=== PATIENT | female | born 1960 | race Caucasian/White ===

== ENCOUNTER 2022-12-25 20:06 | Emergency (ER) | payer MEDICARE, OTHER ==
[2022-12-25 20:17] VITALS: BP 111/82; PULSE 70; RESP 18; TEMP 97.8
[2022-12-25] MEDS ORDERED: TOPICAL SKIN ADHESIVE 1 EACH AMP TOPICAL ONE (20:23)
--- NOTE | 2022-12-25 22:04 | ED ---
Wound/Laceration HPI - General Chief Complaint: Wound/Laceration Stated Complaint: laceration-finger Time Seen by Provider: 12/25/22 20:19 Source: patient Mode of arrival: EMS Limitations: altered mental status - History of Present Illness Initial Comments: 62-year-old female presenting with chief complaint of laceration. Patient has a laceration to the right index finger from a broken dish at home. Tetanus is believed to be up-to-date. She has full range of motion of the finger. Bleeding is well-controlled. Patient states that she had one drink tonight. - Related Data Home Medications Medication Instructions Recorded Confirmed No Known Home Medications 01/07/15 01/07/15 Allergies Allergy/AdvReac Type Severity Reaction Status Date / Time No Known Allergies Allergy Verified 01/07/15 21:42 Review of Systems ROS Statement: Those systems with pertinent positive or pertinent negative responses have been documented in the HPI. ROS Other: All systems not noted in ROS Statement are negative. Past Medical History Past Medical History: Coronary Artery Disease (CAD), Cancer, COPD, Hyperlipidemia, Hypertension History of Any Multi-Drug Resistant Organisms: None Reported Past Surgical History: Breast Surgery, Orthopedic Surgery Additional Past Surgical History / Comment(s): 9 lumps removed Past Psychological History: Anxiety Past Alcohol Use History: Occasional Past Drug Use History: None Reported General Exam Limitations: altered mental status General appearance: alert, in no apparent distress Head exam: Present: atraumatic, normocephalic, normal inspection Eye exam: Present: normal appearance, EOMI Neck exam: Present: normal inspection, full ROM Respiratory exam: Absent: respiratory distress Neurological exam: Present: alert, oriented X3, CN II-XII intact Psychiatric exam: Present: normal affect, normal mood Skin exam: Present: other (Small less than 1 cm laceration to the right index finger.) Course Vital Signs 12/25/22 12/25/22 20:10 20:15 Temperature 97.8 F 97.8 F Pulse Rate 97 70 Respiratory 18 18 Rate Blood Pressure 111/82 111/82 O2 Sat by Pulse 96 95 Oximetry Procedures - Laceration Laceration #1 Consent Obtained: verbal consent Indication: laceration Site: hand Size (cm): 1 Description: linear (1) Depth: simple, single layer Pre-repair: wound explored Type of Sutures: other (exofin) Patient Tolerated Procedure: well Medical Decision Making - Medical Decision Making Was pt. sent in by a medical professional or institution (, [facility], [facility], urgent care, hospital, or [place] [facility]...) When possible be specific @ -No Did you speak to anyone other than the patient for history (EMS, parent, family, police, friend...)? What history was obtained from this source @ -Her boyfriend is present at bedside Did you review nursing and triage notes (agree or disagree)? Why? @ -I reviewed and agree with nursing and triage notes Were old charts reviewed (outside hosp., previous admission, EMS record, old EKG, old radiological studies, urgent care reports/EKG's, [place] [facility] records)? Report findings @ -No old charts were reviewed Differential Diagnosis (chest pain, altered mental status, abdominal pain women, abdominal pain men, vaginal bleeding, weakness, fever, dyspnea, syncope, headache, dizziness, GI bleed, back pain, seizure, CVA, palpatations, mental health, musculoskeletal)? @ -not applicable EKG interpreted by me (3pts min.). @ -As above X-rays interpreted by me (1pt min.). @ -None done CT interpreted by me (1pt min.). @ -None done U/S interpreted by me (1pt. min.). @ -None done What testing was considered but not performed or refused? (CT, X-rays, U/S, la bs)? Why? @ -None What meds were considered but not given or refused? Why? @ -None Did you discuss the management of the patient with other professionals (professionals i.e. , SHILPA, [facility]NER, lab, RT, psych nurse, medical social worker, plant supervisor, teacher, dog license officer supervisor, case repairer)? Give summary @ -No Was smoking cessation discussed for >3mins.? @ -No Was critical care preformed (if so, how long)? @ -No Were there social determinants of health that impacted care today? How? (Homelessness, low income, unemployed, alcoholism, drug addiction, transportation, low edu. Level, literacy, decrease access to med. care, long-term, rehab)? @ -No Was there de-escalation of care discussed even if they declined (Discuss DNR or withdrawal of care, Hospice)? DNR status @ -No What co-morbidities impacted this encounter? (DM, HTN, Smoking, COPD, CAD, Cancer, CVA, ARF, Chemo, Hep., AIDS, mental health diagnosis, sleep apnea, morbid obesity)? @ -None Was patient admitted / discharged? Hospital course, mention meds given and route, prescriptions, significant lab abnormalities, going to OR and other pertinent info. @ -62-year-old female presenting with chief complaint of laceration to the right index finger from a broken dish at home. Bleeding is well controlled. Laceration is repaired with skin adhesive. Patient tells me that she had one drink tonight. A breath alcohol level was ordered, patient is unable to fully comply with directions to get an accurate reading. Serum alcohol was ordered. While waiting for serum alcohol results patient and her boyfriend became agitated stating that they wanted to leave. I explained to them that we had to wait for the alcohol level as I was unsure if they would be able to safely be discharged at this time. Serum alcohol is 77. Patient is discharged. My attending is Dr. Mason Undiagnosed new problem with uncertain prognosis? @ -No Drug Therapy requiring intensive monitoring for toxicity (Heparin, Nitro, Insulin, Cardizem)? @ -No Were any procedures done? @ -Laceration repair Diagnosis/symptom? @ -Laceration Acute, or Chronic, or Acute on Chronic? @ -Acute Uncomplicated (without systemic symptoms) or Complicated (systemic symptoms)? @ -Uncomplicated Side effects of treatment? @ -No Exacerbation, Progression, or Severe Exacerbation? @ -No Poses a threat to life or bodily function? How? (Chest pain, [place], [place], pneumonia, PE, COPD, DKA, ARF, appy, cholecystitis, CVA, Diverticulitis, Homicidal, Suicidal, threat to staff... and all critical care pts) @ -No - Lab Data Lab Results 12/25/22 Range/Units 21:27 Serum Alcohol 77 mg/dL Disposition Clinical Impression: Laceration Disposition: HOME SELF-CARE Condition: Good Instructions (If sedation given, give patient instructions): Laceration (ED), Skin Adhesive Care (ED) Additional Instructions: Follow-up with PCP. Report back to ER with any new or worsening symptoms. Monitor for signs of infection, including but not limited to redness, swelling, pain, discharge, fever, chills. Keep the wound clean and dry and covered. Avoid fully submerging the wound. Clean with soap and water. Do not apply Neosporin or other ointment-based products as this will break down the skin adhesive. Is patient prescribed a controlled substance at d/c from ED?: No Referrals: Fabio Swann MD [Primary Care Provider] - 1-2 days Time of Disposition: 22:04
== END 2022-12-25 22:16 | disposition home or self-care (01) ==
LOC: EC 20:06
DX: S61.210A Laceration without foreign body of right index finger without damage to nail, initial encounter (principal); I10 Essential (primary) hypertension; I25.10 Atherosclerotic heart disease of native coronary artery without angina pectoris; J44.9 Chronic obstructive pulmonary disease, unspecified; X58.XXXA Exposure to other specified factors, initial encounter
CPT/HCPCS: 12001; 36415; 80320; 99284

== ENCOUNTER 2023-05-02 22:23 | Emergency (ER) | payer OTHER ==
[2023-05-02 22:56] VITALS: TEMP 98.2
[2023-05-02] MEDS ORDERED: HALOPERIDOL LACTATE 5 MG/ML 1 ML VIAL IM STA (23:35)
[2023-05-02] MEDS ORDERED: LORazepam 2 MG/ML INJ IM STA (23:35)
[2023-05-02] MEDS ORDERED: diphenhydrAMINE 50 MG/ML 1 ML VIAL IM STA (23:35)
--- NOTE | 2023-05-03 00:32 | ED ---
Psych HPI - General Source: patient, police Mode of arrival: ambulatory <Miriam Kaiser - Last Filed: 05/03/23 05:38> <Blaine Combs - Last Filed: 05/03/23 13:17> - General Chief Complaint: Psychiatric Symptoms Stated Complaint: Petition Time Seen by Provider: 05/02/23 23:31 - History of Present Illness Initial Comments: 62-year-old female brought in by PD for mental health evaluation. Patient has been consuming alcohol tonight. She was threatening suicide and self-harm which prompted police to bring her in. She is rambling aggressive and argumentative. Will not cooperate for obtaining history. Petitioned by PD (Miriam Kaiser) - Related Data Home Medications Medication Instructions Recorded Confirmed No Known Home Medications 01/07/15 01/07/15 Allergies Allergy/AdvReac Type Severity Reaction Status Date / Time No Known Allergies Allergy Verified 01/07/15 21:42 Review of Systems ROS Other: All systems not noted in ROS Statement are negative. <Miriam Kaiser - Last Filed: 05/03/23 05:38> ROS Other: All systems not noted in ROS Statement are negative. <Blaine Combs - Last Filed: 05/03/23 13:17> ROS Statement: Those systems with pertinent positive or pertinent negative responses have been documented in the HPI. Past Medical History Past Medical History: Coronary Artery Disease (CAD), Cancer, COPD, Hyperlipidemia, Hypertension History of Any Multi-Drug Resistant Organisms: None Reported Past Surgical History: Breast Surgery, Orthopedic Surgery Additional Past Surgical History / Comment(s): 9 lumps removed Past Psychological History: Anxiety Past Alcohol Use History: Occasional Past Drug Use History: None Reported <Miriam Kaiser - Last Filed: 05/03/23 05:38> General Exam General appearance: alert, other (Aggressive and argumentative) Head exam: Present: atraumatic, normocephalic Eye exam: Present: normal appearance Neck exam: Present: normal inspection Respiratory exam: Absent: respiratory distress Cardiovascular Exam: Present: regular rate Extremities exam: Present: normal inspection Neurological exam: Present: alert, altered Psychiatric exam: Present: agitated, suicidal ideation <Miriam Kaiser - Last Filed: 05/03/23 05:38> Course Vital Signs 05/02/23 05/03/23 05/03/23 22:36 07:55 11:00 Temperature 98.2 F Pulse Rate 87 80 80 Respiratory 16 20 16 Rate Blood Pressure 140/89 140/80 130/82 O2 Sat by Pulse 99 98 98 Oximetry Procedures - Restraint - Face to Face Restraint Occurrence 1 Patient's Immediate Situation: Endangers self safety, Endangers others' safety, Endangers staff safety, Violent behavior Patient's Reaction to the Intervention: Uncooperative, Hostile, Aggressive, Combative Patient's Medical & Behavioral Condition: Awake, Agitated, Suicidal thoughts Need to Continue or Terminate Restraint or Seclusion: Continue Face to Face Eval of Restraint Date: 05/03/23 Face to Face Eval of Restraint Time: 00:11 Restraint Occurrence 2 Patient's Immediate Situation: Other (see comment) Patient's Reaction to the Intervention: Appropriate Patient's Medical & Behavioral Condition: Sleeping Need to Continue or Terminate Restraint or Seclusion: Terminate Face to Face Eval of Restraint Date: 05/03/23 Face to Face Eval of Restraint Time: 03:10 <Miriam Kaiser - Last Filed: 05/03/23 05:38> - Restraint - Face to Face Restraint Occurrence 2 Patient's Immediate Situation - Comment: This is a reevaluation of the need for restraints (Miriam Kaiser) Medical Decision Making <Miriam Kaiser - Last Filed: 05/03/23 05:38> <Blaine Combs - Last Filed: 05/03/23 13:17> - Medical Decision Making Was pt. sent in by a medical professional or institution (, PA, PROBATION MANAGER, urgent care, hospital, or intermediate...) When possible be specific @ -No Did you speak to anyone other than the patient for history (EMS, parent, family, police, friend...)? What history was obtained from this source @ -No Did you review nursing and triage notes (agree or disagree)? Why? @ -I reviewed and agree with nursing and triage notes Were old charts reviewed (outside hosp., previous admission, EMS record, old EKG, old radiological studies, urgent care reports/EKG's, intermediate records)? Report findings @ -No old charts were reviewed Differential Diagnosis (chest pain, altered mental status, abdominal pain women, abdominal pain men, vaginal bleeding, weakness, fever, dyspnea, syncope, headache, dizziness, GI bleed, back pain, seizure, CVA, palpatations, mental health, musculoskeletal)? @ -Differential Mental Health Depression, anxiety, bipolar, psychosis, schizophrenia, borderline personality, situational depression, adjustment disorder, behavioral disorder, brain tumor, malingering, substance abuse, encephalopathy, medication reaction, dementia, hypothyroidism, degenerative neurologic disorder, lupus.... This is not meant to be all-inclusive list EKG interpreted by me (3pts min.). @ -As above X-rays interpreted by me (1pt min.). @ -None done CT interpreted by me (1pt min.). @ -None done U/S interpreted by me (1pt. min.). @ -None done What testing was considered but not performed or refused? (CT, X-rays, U/S, labs)? Why? @ -None What meds were considered but not given or refused? Why? @ -None Did you discuss the management of the patient with other professionals (professionals i.e. , PA, PROBATION MANAGER, lab, RT, psych nurse, social work msw, napper fixer, teacher, branch lending officer, residential case manager)? Give summary @ -No Was smoking cessation discussed for >3mins.? @ -No Was critical care preformed (if so, how long)? @ -No Were there social determinants of health that impacted care today? How? (Homelessness, low income, unemployed, alcoholism, drug addiction, transportation, low edu. Level, literacy, decrease access to med. care, fdc, rehab)? @ -No Was there de-escalation of care discussed even if they declined (Discuss DNR or withdrawal of care, Hospice)? DNR status @ -No What co-morbidities impacted this encounter? (DM, HTN, Smoking, COPD, CAD, Cancer, CVA, ARF, Chemo, Hep., AIDS, mental health diagnosis, sleep apnea, morbid obesity)? @ -None Was patient admitted / discharged? Hospital course, mention meds given and route, prescriptions, significant lab abnormalities, going to OR and other pertinent info. @ -62-year-old female petitioned by PD for mental health evaluation. Patient was threatening suicide and self-harm. Upon arrival she is aggressive argumentative and uncooperative. Patient then became a threat to herself and staff safety. She was medicated with Benadryl, Haldol, and Ativan. When the patient continued to threaten harm to herself and others 4 point restraints were initiated. Restraints were then discontinued while the patient was sleeping. She is awaiting evaluation by EPS. Patient is signed out to my attending Dr. Bender ([facility]) Was patient admitted / discharged? Hospital course, mention meds given and route, prescriptions, significant lab abnormalities, going to OR and other pertinent info. @ -Dr. Wallis signed the patient out to me at 7 AM. I went in and reevaluated the patient and though EPS initially recommended patient to be admitted I did not find significant reason for the patient to be admitted so Nicol from EPS came down and reevaluated the patient and did agree with me that the patient could be discharged home with a safety plan which was put in place. Undiagnosed new problem with uncertain prognosis? @ -No Drug Therapy requiring intensive monitoring for toxicity (Heparin, Nitro, Insulin, Cardizem)? @ -No Were any procedures done? @ -No Diagnosis/symptom? @ -Alcohol abuse Acute, or Chronic, or Acute on Chronic? @ -Acute Uncomplicated (without systemic symptoms) or Complicated (systemic symptoms)? @ -Complicated Side effects of treatment? @ -No Exacerbation, Progression, or Severe Exacerbation? @ -No Poses a threat to life or bodily function? How? (Chest pain, [place], [place], pneumonia, PE, COPD, DKA, ARF, appy, cholecystitis, CVA, Diverticulitis, Homicidal, Suicidal, threat to staff... and all critical care pts) @ -No Diagnosis/symptom? @ -Situational depression Acute, or Chronic, or Acute on Chronic? @ -Acute Uncomplicated (without systemic symptoms) or Complicated (systemic symptoms)? @ -Applicator Side effects of treatment? @ -None Exacerbation, Progression, or Severe Exacerbation] @ -No Poses a threat to life or bodily function? @ -No Diagnosis/symptom? @ -Dementia Acute, or Chronic, or Acute on Chronic? @ -Chronic Uncomplicated (without systemic symptoms) or Complicated (systemic symptoms)? @ -Complicated Side effects of treatment? @ -None Exacerbation, Progression, or Severe Exacerbation] @ -No Poses a threat to life or bodily function? @ -No (Blaine Combs) - Lab Data Lab Results 05/03/23 05/03/23 Range/Units 08:21 11:26 Urine Opiates Screen Not Detected (NotDetected) Ur Oxycodone Screen Not Detected (NotDetected) Urine Methadone Screen Not Detected (NotDetected) Ur Barbiturates Screen Not Detected (NotDetected) U Tricyclic Antidepress Not Detected (NotDetected) Ur Phencyclidine Scrn Not Detected (NotDetected) Ur Amphetamines Screen Not Detected (NotDetected) U Methamphetamines Scrn Not Detected (NotDetected) U Benzodiazepines Scrn Detected H (NotDetected) Urine Cocaine Screen Not Detected (NotDetected) U Marijuana (THC) Screen Detected H (NotDetected) Influenza Type A (PCR) Not Detected (Not Detectd) Influenza Type B (PCR) Not Detected (Not Detectd) RSV (PCR) Not Detected (Not Detectd) SARS-CoV-2 (PCR) Not Detected (Not Detectd) Disposition <Miriam Kaiser - Last Filed: 05/03/23 05:38> Is patient prescribed a controlled substance at d/c from ED?: No Time of Disposition: 13:17 <Blaine Combs - Last Filed: 05/03/23 13:17> Clinical Impression: Depression, Alcohol abuse, Dementia Disposition: HOME SELF-CARE Condition: Good Instructions (If sedation given, give patient instructions): Depression (ED), Abuse of Alcohol (ED) Referrals: Fabio Swann MD [Primary Care Provider] - 1-2 days
[2023-05-03 09:51] LABS: Amphetamine Screen,Urine Not Detected (NotDetected); Barbiturate Screen,Urine Not Detected (NotDetected); Benzodiazepines Screen,Urine Detected (NotDetected); Cocaine Screen,Urine Not Detected (NotDetected); Methadone Screen, Urine Not Detected (NotDetected); Opiate Screen,Urine Not Detected (NotDetected); Oxycodone Screen, Urine Not Detected (NotDetected); Phencyclidine Screen,Urine Not Detected (NotDetected); Tricyclic Antidepressant,Urine Not Detected (NotDetected); Urn Cannabinoid Scrn Detected (NotDetected)
[2023-05-03 11:32] VITALS: RESP 16
[2023-05-03 15:31] VITALS: BP 136/80; PULSE 65
== END 2023-05-03 15:27 | disposition home or self-care (01) ==
LOC: EC 22:23
DX: F43.21 Adjustment disorder with depressed mood (principal); F03.93 Unspecified dementia, unspecified severity, with mood disturbance; F03.911 Unspecified dementia, unspecified severity, with agitation; F10.10 Alcohol abuse, uncomplicated; I10 Essential (primary) hypertension; J44.9 Chronic obstructive pulmonary disease, unspecified; I25.10 Atherosclerotic heart disease of native coronary artery without angina pectoris; Z20.822 Contact with and (suspected) exposure to COVID-19
CPT/HCPCS: 82075; 80306; 87636; 99285; 96372 ×3; J2060; J1200; J1630

== ENCOUNTER 2024-03-22 12:24 | Inpatient (IN) | payer OTHER ==
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
[2024-03-22 13:36] LABS: Glucose,Whole Blood 104 mg/dL (70-110)
[2024-03-22] MEDS: OLANZapine ODT 10 MG TAB PO STA (13:55)
[2024-03-22] MEDS: LORazepam 1 MG TAB PO STA ×3 (13:55→17:29)
[2024-03-22 14:01] LABS: Basophils # (A) 0.1 k/uL (0-0.2); Basophils % (A) 1 %; Eosinophils # (A) 0.1 k/uL (0-0.7); Eosinophils % (A) 1 %; HCT 41.8 % (34.0-46.0); HGB 14.2 gm/dL (11.4-16.0); Lymphocytes # (A) 2.8 k/uL (1.0-4.8); Lymphocytes % (A) 33 %; MCH 30.3 pg (25.0-35.0); MCV 89.2 fL (80.0-100.0); Mean Platelet Volume 7.4; Monocytes # (A) 0.6 k/uL (0-1.0); Monocytes % (A) 7 %; Neutrophils # (A) 4.7 k/uL (1.3-7.7); Neutrophils % (A) 57 %; Platelet Count 312 k/uL (150-450); RBC 4.69 m/uL (3.80-5.40); RDW 12.4 % (11.5-15.5); WBC 8.3 k/uL (3.8-10.6)
[2024-03-22 14:19] LABS: ALT 14 U/L (4-34); AST 24 U/L (14-36); Acetaminophen <10.0 ug/mL; African American GFR (CKD) >90 (>60 ml/min/1.73 sqM); Albumin 4.6 g/dL (3.5-5.0); Alcohol <10 mg/dL; Alkaline Phosphatase 45 U/L (38-126); Anion Gap 7 mmol/L; Blood Urea Nitrogen 28 mg/dL (7-17); Calcium 10.4 mg/dL (8.4-10.2); Carbon Dioxide 21 mmol/L (22-30); Chloride 111 mmol/L (98-107); Glucose 92 mg/dL (74-99); Non-African American GFR(CKD) 84 (>60 ml/min/1.73 sqM); Potassium 3.6 mmol/L (3.5-5.1); Salicylate <1.0 mg/dL; Sodium 139 mmol/L (137-145); Total Bilirubin 0.7 mg/dL (0.2-1.3); Total Protein 6.9 g/dL (6.3-8.2)
[2024-03-22] MEDS: OLANZapine ODT 5 MG TAB PO STA (15:03)
[2024-03-22] MEDS: OLANZapine 10 MG VIAL IM STA (16:13)
[2024-03-22] MEDS: LORazepam 2 MG/ML INJ IM STA ×2 (16:13→17:29)
[2024-03-22] MEDS: diphenhydrAMINE 50 MG CAP PO STA (17:29)
[2024-03-22] MEDS: diphenhydrAMINE 50 MG/ML 1 ML VIAL IM STA (17:29)
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
[2024-03-22] MEDS ORDERED: LORazepam 2 MG/ML INJ IM PRN (19:29)
[2024-03-22] MEDS ORDERED: MAG HYDROX/AL HYDROX/SIMETH 355 ML BOTTLE PO PRN (19:29)
[2024-03-22] MEDS ORDERED: ZIPRASIDONE 20 MG VIAL IM PRN (19:29)
[2024-03-22] MEDS ORDERED: ACETAMINOPHEN TAB 325 MG TAB PO PRN (19:29)
[2024-03-22] MEDS ORDERED: MAGNESIUM HYDROXIDE 2,400 MG/30 ML CUP PO PRN (19:29)
[2024-03-22] MEDS ORDERED: IBUPROFEN 600 MG TAB PO PRN (19:29)
[2024-03-22] MEDS ORDERED: QUEtiapine 50 MG TAB PO PRN (19:32)
--- NOTE | 2024-03-22 20:03 | XR ---
EXAMINATION TYPE: XR humerus RT DATE OF EXAM: 03/22/2024 6:51 PM CLINICAL INDICATION:Female, 63 years old with history of fall from bed, hit mid upper arm; [facility] COMPARISON: None TECHNIQUE: XR humerus RT examined in frontal and lateral projections. FINDINGS: No evidence of acute osseous pathology, joint dislocation, or significant soft tissue swell ing. The remaining portions of the visualized chest are unremarkable. IMPRESSION: No acute osseous pathology. [facility], , 03/22/2024 8:00 PM
[2024-03-23] MEDS ORDERED: traZODone HCL 50 MG TAB PO PRN (12:06)
--- NOTE | 2024-03-23 12:06 | P.HP ---
Psychiatric H&P - . H&P Date: 03/23/24 History & Physical: Allergies Allergy/AdvReac Type Severity Reaction Status Date / Time No Known Allergies Allergy Verified 03/22/24 15:27 Vital Signs Temp 97.9 F 03/22/24 21:04 Pulse 58 L 03/22/24 21:04 Resp 15 03/22/24 21:04 BP 132/73 03/22/24 21:04 Pulse Ox 96 03/22/24 21:04 FiO2 Intake & Output 03/22/24 03/23/24 03/23/24 18:59 06:59 18:59 Weight 72.575 kg Laboratory Last Values WBC 8.3 k/uL (3.8-10.6) 03/22/24 13:43 RBC 4.69 m/uL (3.80-5.40) 03/22/24 13:43 Hgb 14.2 gm/dL (11.4-16.0) 03/22/24 13:43 Hct 41.8 % (34.0-46.0) 03/22/24 13:43 MCV 89.2 fL (80.0-100.0) 03/22/24 13:43 MCH 30.3 pg (25.0-35.0) 03/22/24 13:43 MCHC 34.0 g/dL (31.0-37.0) 03/22/24 13:43 RDW 12.4 % (11.5-15.5) 03/22/24 13:43 Plt Count 312 k/uL (150-450) 03/22/24 13:43 MPV 7.4 03/22/24 13:43 Neutrophils % 57 % 03/22/24 13:43 Lymphocytes % 33 % 03/22/24 13:43 Monocytes % 7 % 03/22/24 13:43 Eosinophils % 1 % 03/22/24 13:43 Basophils % 1 % 03/22/24 13:43 Neutrophils # 4.7 k/uL (1.3-7.7) 03/22/24 13:43 Lymphocytes # 2.8 k/uL (1.0-4.8) 03/22/24 13:43 Monocytes # 0.6 k/uL (0-1.0) 03/22/24 13:43 Eosinophils # 0.1 k/uL (0-0.7) 03/22/24 13:43 Basophils # 0.1 k/uL (0-0.2) 03/22/24 13:43 Sodium 139 mmol/L (137-145) 03/22/24 13:43 Potassium 3.6 mmol/L (3.5-5.1) 03/22/24 13:43 Chloride 111 mmol/L (98-107) H 03/22/24 13:43 Carbon Dioxide 21 mmol/L (22-30) L 03/22/24 13:43 Anion Gap 7 mmol/L 03/22/24 13:43 BUN 28 mg/dL (7-17) H 03/22/24 13:43 Creatinine 0.76 mg/dL (0.52-1.04) 03/22/24 13:43 Est GFR (CKD-EPI)AfAm >90 (>60 ml/min/1.73 sqM) 03/22/24 13:43 Est GFR (CKD-EPI)NonAf 84 (>60 ml/min/1.73 sqM) 03/22/24 13:43 Glucose 92 mg/dL (74-99) 03/22/24 13:43 POC Glucose (mg/dL) 104 mg/dL (70-110) 03/22/24 13:35 POC Glu Tourist Adviser ID Shy Laguerre 03/22/24 13:35 Calcium 10.4 mg/dL (8.4-10.2) H 03/22/24 13:43 Total Bilirubin 0.7 mg/dL (0.2-1.3) 03/22/24 13:43 AST 24 U/L (14-36) 03/22/24 13:43 ALT 14 U/L (4-34) 03/22/24 13:43 Alkaline Phosphatase 45 U/L (38-126) 03/22/24 13:43 Total Protein 6.9 g/dL (6.3-8.2) 03/22/24 13:43 Albumin 4.6 g/dL (3.5-5.0) 03/22/24 13:43 Salicylates <1.0 mg/dL 03/22/24 13:43 Acetaminophen <10.0 ug/mL 03/22/24 13:43 Serum Alcohol <10 mg/dL 03/22/24 13:43 SARS-CoV-2 (PCR) Not Detected (Not Detectd) 03/22/24 15:00 03/23/24 11:50 IDENTIFYING DATA: Patient is a 63-year-old female, coming from the [facility] HPI: Patient presented to the hospital yesterday for psychiatric evaluation, was brought from the senior care. Patient apparently was uncooperative aggressive and pressured speech in the ER. According to petition filled out by senior care social director states that "client is ANO x 1, client disorganized pressured labile, aggressive, history of schizoaffective disorder, client has not slept or eaten in 3 days, client observed to be eating Styrofoam from her meals only". Patient was assessed by EPS social director and as per note "Cl awake sitting on edge of bed in room w orlin's deputies from [facility]. A/O x 1 brought in via on PET due to psychosis,agitation and, agression.PET states " Client is A/Ox1, disorganzied ,pressured,labile,agressive,hx of schizo-affective disorder, has not slept or eaten in 3 days, observed eating styrofoam from her meals only." Cl reports not knowing why they are in the ER. Cl presents disorganized in thought and speech, non sensical statements, loose association, flight of ideas, guarded, appears disoriented, delusional, and paranoid. When asked basic questions cl would ramble with disconnected statements.Cl is disheveld, intense eye contact, poor hygene, loss of conceptualization and abstraction. When asked if suicidal cl replied " I'll let you know." When asked if homicidal " my daughter who this year." Judgement/insight/impulse control poor ADLS: poor sleep/robert: poor Medical issues: unable to determine, possible UTI. Medications: none reported. Hx of MH tx: Cl does not recieve any MH tx at this time and is not open with [facility]. Clinician did not find records in [facility]. Hx of KAT: None reported UDS: pending BAT: 0.0 Hx of in pat rehab: none reported Fam hx : nonsensical answers. Hx of trauma: Not addressed due to cl's disorginization. Hx of legal: Currently in senior care." Patient was seen today in her room. She appears to have disheveled appearance, was responding to internal stimuli. She was fairly uncooperative with the interview, mumbling, fairly nonsensical disorganized speech. Willow Machine Operator attempted to ask her specific questions however she only answered a few of them. Very poor insight poor judgment. Poor historian. Patient denies any suicidal or homicidal ideations intent or plan. Did not answer questions related to hallucinations. Patient was not able to answer questions related to substance use. Patient was a poor historian, unable to give further psychiatric history or social history. PAST PSYCHIATRIC HISTORY: Patient has a history of schizoaffective disorder. PMH: as per ER note ALLERGIES: as per EMR CHEMICAL DEPENDENCY HISTORY: Unable to assess FAMILY PSYCHIATRIC/SUBSTANCE USE HISTORY: Unable to assess SOCIAL HISTORY: Patient is coming from the [facility] [place] MENTAL STATUS EXAM: General Appearance: Patient appears to be disheveled in appearance, responding to internal stimuli stated age is alert, not directable, disorganized. Patient appears to have poor hygiene and grooming. Behavior: Patient is seated without any agitated behavior. Disorganized, responding to internal stimuli Speech: Patient's speech is mumbling, incoherent for most of it Mood/Affect: P unable to assess Suicidality/Homicidality: Patient denies having any homicidal ideation intent or plan. Denies any suicidal ideations intent or plan Perceptions: Unable to assess, responding to internal stimuli Though content/process: Mumbling, rambling, incoherent mainly. Disorganized thoughts Memory and concentration: Unable to assess, poor attention span Judgment and insight: Poor STRENGTHS/WEAKNESSES: strength is that patient is resilient. Weakness is that patient has poor judgment and is impulsive INTELLECT: Average IMPRESSIONS: Psychosis unspecified, rule out schizophrenia versus schizoaffective disorder versus bipolar disorder with psychotic features Legal problems PLAN: -Patient is admitted under involuntary status to [facility]HU for stabilization of psychiatric symptoms and safety. Patient has not signed adult voluntary form and medication consent and is placed in patient's chart. A second certification was completed and along with petition will be filed for court. -Medications : Invega p.o. 3 mg twice daily for psychosis/mood stabilization. Trazodone 50 mg nightly as needed for insomnia. Due to patient's noncompliance, would suggest transitioning onto a long-acting injection if patient agrees. -Ativan and Haldol PRN for agitation/aggression -Patient was informed of the risks, benefits and side effects of the medication for patient did not sign consent form -Internal Medicine consult to perform medical evaluation and physical. -NRT - not needed as patient does not smoke -SW on board for discharge planning. Encourage patient to participate in groups to work on coping skills. Will await deferral and court date. 03/23/24 12:00 03/23/24 12:05
[2024-03-23] MEDS: PALIPERIDONE 3 MG TAB.ER.24 PO SCH (12:23)
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
[2024-03-23] MEDS: ZIPRASIDONE 20 MG CAP PO PRN (16:07)
[2024-03-23] MEDS: LORazepam 1 MG TAB PO PRN (16:07)
[2024-03-23] MEDS: OLANZapine 7.5 MG TAB PO ONE (17:44)
[2024-03-23] MEDS: OLANZapine 10 MG VIAL IM STA (17:44)
[2024-03-23] MEDS: NICOTINE 14MG/24HR PATCH TRANSDERM SCH (18:33)
--- NOTE | 2024-03-23 20:44 | P.MDCNMH ---
<[place]wood - Last Filed: 03/23/24 20:44> History of Present Illness H&P Date: 03/23/24 Chief Complaint: Psychosis Patient is a 63-year-old female with coronary artery disease, breast cancer, COPD, hyperlipidemia, hypertension who was brought into the emergency department [facility] the [facility]. Patient is currently being admitted to the mental health unit for psychosis and was seen and evaluated in the unit while accompanied by MHU nurse. Patient was very hard to understand. She did vaguely mention about the left side of her chest wall being slightly tender to palpation. However chest x-ray obtained in the ER showed no acute intrathoracic process. Radiologist recommended to correlate with CT scan as clinically warranted. Denies other complaints at this time. Denies fever, chills, nausea, vomiting, shortness of breath, belly pain, lower extremity swelling. Vitals on admission temperature 97.6, pulse rate 99, respiratory rate 15, blood pressure 116 /71, O2 sat 95% on room air CXR obtained in the ER showed no acute intrathoracic process. There is a age indeterminant deformity of the lower anterior right rib cage. Sternum is not well-seen due to technique correlate with CT scan as clinically warranted. X-ray of right humerus shows no acute osseous pathology. CT of brain and spine without contrast showed mild spinal canal stenosis at C5- C7, no gross evidence for acute intracranial process. No evidence of acute cervical spine fracture. Mild multilevel degenerative disc disease. Grade 1 anterolisthesis of C7 on T1. Labs on admission show WBC 8.3, hemoglobin 14.2, hematocrit 41.8, platelets 312, sodium 139, potassium 3.6, chloride 111, carbon dioxide 21, BUN 28, creatinine 0.76, glucose 92, calcium 10.4 Review of systems: Pertinent positives and negatives as discussed in HPI, a complete review of systems was performed and all other systems are negative. PMH: Coronary artery disease, breast cancer, COPD, hyperlipidemia, hypertension PSH: Breast surgery and orthopedic surgery FMH: No pertinent family history Allergies: No known drug allergies Social history: Tobacco: Currently everyday smoker Alcohol: Occasional alcohol use Recreational drugs: No recent drug use Physical examination: Vital signs reviewed General: nontoxic, no distress, appears at stated age Derm: warm, dry, intact Head: atraumatic, normocephalic, symmetric Eyes: EOMI, anicteric sclera Mouth: no lip lesion, mucus membranes moist Cardiovascular: S1 S2 reg, no murmur Lungs: CTA bilateral, no rhonchi, no rales, no accessory muscle use Abdominal: soft, non-tender to palpation Extremities: No cyanosis, clubbing, or lower extremity edema. Neuro: Alert, Gross neurological examination did not reveal any focal deficits. Psych: well appearing, appropriate affect Assessment/Plan: Patient is a 63-year-old female with coronary artery disease, breast cancer, COPD, hyperlipidemia, hypertension who was brought into the emergency department for psychiatric evaluation from the prison. Patient is being admitted to the mental health unit for psychosis and was seen and evaluated while accompanied by MHU nurse. #. Psychosis Defer management of psychosis to primary psychiatric service #. Hypercalcemia Calcium of 10.4 Monitor morning CMP Past Medical History Past Medical History: Coronary Artery Disease (CAD), Cancer, COPD, Hyperlipidemia, Hypertension History of Any Multi-Drug Resistant Organisms: None Reported Past Surgical History: Breast Surgery, Orthopedic Surgery Additional Past Surgical History / Comment(s): 9 lumps removed Past Psychological History: Anxiety Smoking Status: Current every day smoker Past Alcohol Use History: Occasional Past Drug Use History: None Reported Medications and Allergies Home Medications Medication Instructions Recorded Confirmed Type No Known Home Medications 01/07/15 03/22/24 History Allergies Allergy/AdvReac Type Severity Reaction Status Date / Time No Known Allergies Allergy Verified 03/22/24 15:27 Physical Exam Vitals: Vital Signs Temp Pulse Pulse Resp BP BP Pulse Ox 03/23/24 12:48 97.6 F 99 116/71 95 03/22/24 21:04 97.9 F 58 L 15 132/73 96 03/22/24 20:29 97.3 F L 75 18 135/69 97 Results CBC & Chem 7: 03/22/24 13:43 03/22/24 13:43 <Bill Daigle - Last Filed: 03/24/24 02:26> Physical Exam Vitals: Vital Signs Temp Pulse BP Pulse Ox 03/23/24 12:48 97.6 F 99 116/71 95 Cranial Nerve Examination - Cranial Nerves Cranial Nerve II- Optic: Intact Cranial Nerve III- Oculomotor: Intact Cranial Nerve IV- Trochlear: Intact Cranial Nerve V- Trigeminal: Intact Cranial Nerve - Abducens: Intact Cranial Nerve VII- Facial: Intact Cranial Nerve VIII- Auditory: Intact Cranial Nerve IX- Glossopharyngeal: Intact Cranial Nerve X- Vagus: Intact Cranial Nerve XI- Accessory: Intact Cranial Nerve XII- Hypoglossal: Intact Results CBC & Chem 7: 03/22/24 13:43 03/22/24 13:43 Assessment and Plan Assessment: I have seen and evaluated the patient today. I Discussed the case with the resident and agree with the resident's findings I edited the assessment and plan as necessary as documented in the resident's note.
--- NOTE | 2024-03-24 08:48 | P.PN ---
Subjective Progress Note Date: 03/24/24 Principal diagnosis: schizoaffective when seen in the emergency room the patient wasdisorganized pressured labile, aggressive, history of schizoaffective disorder, client has not slept or eaten in 3 days, client observed to be eating Styrofoam from her meals only". She was brought to the hospital from the residential due to agitation. She complained vaguely of chest wall pain in the left side which she still does today. But they couldn't find any explanation for it. Mental status exam: The patient has flight of ideas and cannot finish any thought. She was directable and came and talk to me and then I had to walk her down the [place] to find where breakfast was. She took her medications readily. She was alert, almost no eye contact, gait and station were okay, self-care was minimal. She was rambling about her sister possibly being and she couldn't go to her. The patient is involuntarybut willing to take when necessary so she becomes agitated clearly psychotic. Plan is to keep her safe give permission to treat her and offer her antipsychoticsand gather information as to what his work for her in the past Diagnosis :psychosis NOS probably schizoaffective Objective - Vital Signs Vital signs: Vital Signs Temp 97.3 F L 03/24/24 06:38 Pulse 79 03/24/24 06:38 Resp 16 03/24/24 06:38 BP 124/77 03/24/24 06:38 Pulse Ox 97 03/24/24 06:38 FiO2 - Labs CBC & Chem 7: 03/22/24 13:43 03/22/24 13:43
[2024-03-24 12:40] LABS: ALT 17 U/L (4-34); AST 26 U/L (14-36); African American GFR (CKD) >90 (>60 ml/min/1.73 sqM); Albumin 4.4 g/dL (3.5-5.0); Alkaline Phosphatase 49 U/L (38-126); Anion Gap 7 mmol/L; Blood Urea Nitrogen 19 mg/dL (7-17); Calcium 10.4 mg/dL (8.4-10.2); Carbon Dioxide 21 mmol/L (22-30); Chloride 111 mmol/L (98-107); Glucose 116 mg/dL (74-99); Non-African American GFR(CKD) 82 (>60 ml/min/1.73 sqM); Potassium 3.2 mmol/L (3.5-5.1); Sodium 139 mmol/L (137-145); Total Bilirubin 0.8 mg/dL (0.2-1.3); Total Protein 6.7 g/dL (6.3-8.2)
[2024-03-24] MEDS: POTASSIUM CHLORIDE ER 20 MEQ TAB.ER PO STA (14:48)
[2024-03-25] MEDS: DIVALPROEX 500 MG TABLET.DR PO SCH (20:11)
--- NOTE | 2024-03-26 19:55 | P.PN ---
Progress Note - Text Progress Note Date: 03/25/24 Interval history: I evaluated Zo on 03/25/24 via HIPAA compliant telehealth in the conference room. She attempts to cooperate, however her thoughts are grossly disorganized and nonsensical. She is a poor historian and insight/judgment appear to be poor as well. When asked if she slept well last night she responds with "I was in my other house". She rambles nonsensically, talks about her sister who she then says is . She is somewhat labile, a bit irritable, but no agitation. When asked about auditory or visual hallucinations, she responds "Don't worry about it". MENTAL STATUS EXAM: General Appearance: Patient appears her stated age, dressed in [place] sweatshirt, fair hygiene/grooming Behavior: She attempts to cooperate. No agitation. Speech: Patient's speech is fluent and nonpressured. Mood/Affect: Claims her mood is "fine", affect appears euthymic. Suicidality/Homicidality: Denies Perceptions: Answer is incoherent, responds with "Don't worry about it" Though content/process: Disorganized, rambling nonsensically Memory and concentration: AOX3 Judgment and insight: Poor ASSESSMENT/PLAN: Continue current diagnosis. Patient continues to meet criteria for inpatient hospitalization. -Medications: Continue to encourage compliance with medications. Start Depakote 500 mg BID for mood stabilization. Continue Invega 3 mg BID for psychosis. -Ativan and Haldol PRN for agitation/aggression -NRT - not needed as patient does not smoke -SW on board for discharge planning. Encourage patient to participate in groups to work on coping skills. Will await deferral and court date.
--- NOTE | 2024-03-26 20:01 | P.PN ---
Progress Note - Text Progress Note Date: 03/26/24 Interval history: Patient was seen on 03/26/24 via HIPAA compliant telehealth in the conference r oom. She attempts to cooperate, however thoughts are grossly disorganized and nonsensical. She was started on Depakote 500 mg BID last night and today thought process initially appears modestly improved. She is calmer, says "Hi Honey". She recalls we talked yesterday and states "I'm missing you." She reports breakfast wasn't good, she talks about not liking her breakfast, still disorganized. She denies SI or HI. She derails into nonsensical rambling and says last night "we had the kids outside, every calls on them...talking to people out there". She seems to be saying she sees and hears them out there. She is medication compliant and denies medication side effects. MENTAL STATUS EXAM: General Appearance: Patient appears her stated age, dressed in [place] sweatshirt, fair hygiene/grooming Behavior: She attempts to cooperate. No agitation. Speech: Patient's speech is fluent and nonpressured. Mood/Affect: Claims her mood is "good", affect appears euthymic. Suicidality/Homicidality: Denies Perceptions: Appears to be endorsing auditory/visual hallucinations of kids outside. Though content/process: Disorganized, rambling nonsensically Memory and concentration: AOX3 Judgment and insight: Poor ASSESSMENT/PLAN: Continue current diagnosis. Patient continues to meet criteria for inpatient hospitalization. -Medications: Continue to encourage compliance with medications. Continue Depakote 500 mg BID for mood stabilization. Increase Invega 3 mg BID to 3 mg daily in the morning & 6 mg QHS for psychosis. -Ativan and Haldol PRN for agitation/aggression -NRT - not needed as patient does not smoke -SW on board for discharge planning. Encourage patient to participate in groups to work on coping skills. Will await deferral and court date.
[2024-03-26] MEDS: PALIPERIDONE 6 MG TAB.ER.24 PO SCH (20:36)
[2024-03-27] MEDS: PALIPERIDONE 3 MG TAB.ER.24 PO SCH (10:15)
--- NOTE | 2024-03-27 10:32 | P.PN ---
Subjective Progress Note Date: 03/27/24 Principal diagnosis: schizoaffective Patient was seen in her room but she got up and came to talk to me and was cooperative,, however thoughts are grossly disorganized and nonsensical. She was started on Depakote 500 mg BID last night and today thought process initially appears modestly improved. She is calmer, says "Hi Honey". She recalls we talked yesterday and states "I'm missing you." She reports breakfast wasn't good, she talks about not liking her breakfast, still disorganized. She denies SI or HI. She derails into nonsensical rambling and says last night "we had the kids outside, every calls on them...talking to people out there". She seems to be saying she sees and hears them out there. She is medication compliant and denies medication side effects. MENTAL STATUS EXAM: whenI asked her what the day of the week it was, she couldn't answer this. I said why don't wejust name all the days in a week. there is Friday, Friday then what calms next? She could not answer that question.she seems a little less loose so nice on her on [place] General Appearance: Patient appears her stated age, dressed in [place] sweatshirtprior the same when she were yesterday, fair hygiene/grooming Behavior: She attempts to cooperate. No agitation.she will laugh and smile but she can't tell what she is laughing and smiling about Speech: Patient's speech is nonpressured. Mood/Affect: Claims her mood is "good", affect appears euthymic. Suicidality/Homicidality: Denies Perceptions: Appears to be endorsing auditory/visual hallucinations of kids outside. Though content/process: Disorganized, rambling nonsensically Memory and concentration: AOX3 Judgment and insight: Poor ASSESSMENT/PLAN: continue current medication Patient continues to meet criteria for inpatient hospitalization. -Medications: Continue to encourage compliance with medications. Continue Depakote 500 mg BID for mood stabilization. Increase Invega 3 mg BID to 3 mg daily in the morning & 6 mg QHS for psychosis. -Ativan and Haldol PRN for agitation/aggression -NRT - not needed as patient does not smoke -SW on board for discharge planning. Encourage patient to participate in groups to work on coping skills. Will await deferral and court date. Objective - Vital Signs Vital signs: Vital Signs Temp 96.8 F L 03/26/24 09:48 Pulse 118 H 03/26/24 09:48 Resp 16 03/25/24 06:30 BP 114/76 03/26/24 09:48 Pulse Ox 99 03/26/24 09:48 FiO2 - Labs CBC & Chem 7: 03/22/24 13:43 03/24/24 11:55
[2024-03-27 19:04] LABS: African American GFR (CKD) 80 (>60 ml/min/1.73 sqM); Anion Gap 8 mmol/L; Blood Urea Nitrogen 21 mg/dL (7-17); Calcium 10.2 mg/dL (8.4-10.2); Carbon Dioxide 28 mmol/L (22-30); Chloride 105 mmol/L (98-107); Glucose 67 mg/dL (74-99); Magnesium 2.1 mg/dL (1.6-2.3); Non-African American GFR(CKD) 69 (>60 ml/min/1.73 sqM); Potassium 4.2 mmol/L (3.5-5.1); Sodium 141 mmol/L (137-145)
--- NOTE | 2024-03-28 08:23 | P.PN ---
Subjective Progress Note Date: 03/28/24 Principal diagnosis: schizoaffective Patient was seen in her room but she got up and came to talk to me and was cooperative,, however thoughts are grossly disorganized and nonsensical. She is on Depakote 500 mg BID . She is calmer, says "Hi Honey" still disorganized but has a ready smile good eye contact and is cooperative. She denies SI or HI."I'm feeling fine" She derails into nonsensical rambling She is medication compliant and denies medication side effects. MENTAL STATUS EXAM: whenI asked her what the day of the week it was, she couldn't answer this. I said why don't wejust name all the days in a week. there is Friday, Friday then what calms next? She could not answer that question.she seems a little less loose so nice on her on [place] General Appearance: Patient appears her stated age, dressed in [place] sweatshirtprior the same when she were yesterday, fair hygiene/grooming Behavior: She attempts to cooperate. No agitation.she will laugh and smile but she can't tell what she is laughing and smiling about Speech: Patient's speech is nonpressured. Mood/Affect: Claims her mood is "good", affect appears euthymic. Suicidality/Homicidality: Denies Perceptions: did not seem to be hearing voices my doctor this hard to tell because she is still irrational Though content/process: Disorganized, rambling nonsensically Memory and concentration:hard to evaluate Judgment and insight: Poor ASSESSMENT/PLAN: continue current medication Patient continues to meet criteria for inpatient hospitalization. -Medications: Continue to encourage compliance with medications. Continue Depakote 500 mg BID for mood stabilization. Increase Invega 3 mg BID to 3 mg daily in the morning & 6 mg QHS for psychosis. -Ativan and Haldol PRN for agitation/aggression -NRT - not needed as patient does not smoke -SW on board for discharge planning. Encourage patient to participate in groups to work on coping skills. Will await deferral and court date. Objective - Vital Signs Vital signs: Vital Signs Temp 96.8 F L 03/26/24 09:48 Pulse 118 H 03/26/24 09:48 Resp 16 03/25/24 06:30 BP 114/76 03/26/24 09:48 Pulse Ox 99 03/26/24 09:48 FiO2 - Labs CBC & Chem 7: 03/22/24 13:43 03/27/24 18:05 Labs: Abnormal Lab Results - Last 24 Hours (Table) 03/27/24 Range/Units 18:05 BUN 21 H (7-17) mg/dL Glucose 67 L (74-99) mg/dL
--- NOTE | 2024-03-29 12:45 | P.PN ---
Progress Note - Text Interval History: Patient was seen in the hallway and was directable and agreeable to speak with senior technical writer in the office. When asked today's date she was unsure. When this was narrowed to month and year she mumbled incoherently. Additionally, she said "this...it hurts" and pointed to her left chest. She was seen after breakfast time though said she hasn't eaten today. She described her mood as "tired" and went on to say "I go with them" and other incoherent statements. At this time patient denies any suicidal or homicidal ideations, intent or plan. Patient did not clearly answer questions about auditory or visual hallucinations. Patient has been compliant with meds. Per review of nursing notes, patient was confused last night and attempted to go into the wrong room; she was redirected. Mental Status Exam: General Appearance: Patient appears to be older than stated age is alert, directable, and cooperative. Hygiene is poor. Behavior: Patient is calmly seated without any agitated behavior. Minimal eye contact. Speech: Patient's speech is non-fluent and non-pressured. Many incoherent mumbles. Mood/Affect: Mood is "tired", affect is congruent and constricted. Suicidality/Homicidality: Patient denies having any suicidal or homicidal ideation, intent, or plan. "No, not that." Perceptions: Not clearly observed responding to internal stimuli though unable to answer questions about hallucinations. Though content/process: Paucity of thought. Thought process is disorganized and tangential. Largely incoherent. Memory and concentration: AOX3, grossly intact for the purposes of this session Judgment and insight: Poor ASSESSMENT: Unspecified psychotic disorder (schizophrenia vs. Bipolar I with psychotic features vs. schizoaffective disorder) Consider whether an underlying neurocognitive disorder may be contributing to patient's presentation PLAN: -Patient continues to meet criteria for inpatient psychiatric admission for symptom stabilization and safety. Patient has not signed adult voluntary form or medication consent. -Medications: - Continue Invega 3mg QAM/6mg QHS in preparation for transition to [facility] for psychotic symptoms - Continue Divalproex 500 mg BID for mood stabilization - Continue Trazodone 50 mg PRN insomnia -When necessary Ativan and Geodon for agitation/aggression. -NRT - Nicotine patch is available but patient is declining -SW on board for discharge planning. Encouraged the patient to participate in milieu. Currently awaiting court date on 04/07/24.
--- NOTE | 2024-03-30 09:34 | P.PN ---
Progress Note - Text Progress Note Date: 03/30/24 Interval History: Patient was seen in the hallway and was directable and agreeable to speak with keno writer / runner today. Patient was banging on the door of the other psychiatrist, was redirected from there. She appeared to have disorganized thoughts and also speech. She was mumbling at times, incoherent. Attempting to answer some questions. Appeared to be responding to internal stimuli, distracted with her papers. She held out a piece of a saltine cracker to offer to keno writer / runner. She was difficult to redirect with conversation, poor reality testing. At this time patient denies any suicidal or homicidal ideations, intent or plan. Patient did not clearly answer questions about auditory or visual hallucinations. Patient continues to have broken sleep according to nursing notes Mental Status Exam: General Appearance: Patient appears to be older than stated age is alert, occult to redirect. Hygiene is improving mildly Behavior: Patient is calmly seated without any agitated behavior. Minimal eye contact. Responding to internal stimuli Speech: Patient's speech is non-fluent and non-pressured. Many incoherent mumbles. Mood/Affect: Mood is "good", affect is congruent and constricted. Suicidality/Homicidality: Patient denies having any suicidal or homicidal ideation, intent, or plan Perceptions: responding to internal stimuli though unable to answer questions about hallucinations. Though content/process: Paucity of thought. Thought process is disorganized and tangential. Largely incoherent. Memory and concentration: AOX3, grossly intact for the purposes of this session Judgment and insight: Poor ASSESSMENT: Unspecified psychotic disorder (schizophrenia vs. Bipolar I with psychotic features vs. schizoaffective disorder) Consider whether an underlying neurocognitive disorder may be contributing to patient's presentation PLAN: -Patient continues to meet criteria for inpatient psychiatric admission for symptom stabilization and safety. Patient has not signed adult voluntary form or medication consent. -Medications: - d/c Invega and replace with prolixin 3mg BID in preparation for transition to [facility] for psychotic symptoms to help with compliance. - increase Divalproex 1000 mg HS for mood stabilization - Continue Trazodone 50 mg PRN insomnia -When necessary Ativan and Geodon for agitation/aggression. -NRT - Nicotine patch -SW on board for discharge planning. Encouraged the patient to participate in milieu. Currently awaiting court date on 04/07/24.
[2024-03-30] MEDS: DIVALPROEX 500 MG TABLET.DR PO SCH (21:14)
--- NOTE | 2024-03-31 09:52 | P.PN ---
Progress Note - Text Progress Note Date: 03/31/24 Interval History: Patient was seen today laying in bed. She continues to appear to be disheveled in appearance. She briefly was awoken, only answered a few questions to gag writer. She apparently did not sleep much last night. She denied any depression or anxiety. Continues to ramble at times, illogical, disorganized speech and thoughts. Appeared to be responding to internal stimuli. Continues to have poor reality testing. At this time patient denies any suicidal or homicidal ideations, intent or plan. Patient did not clearly answer questions about auditory or visual hallucinations. Patient continues to have broken sleep according to nursing notes Mental Status Exam: General Appearance: Patient appears to be older than stated age is alert, occult to redirect. Hygiene is improving mildly, disheveled appearance. Behavior: Patient is calmly seated without any agitated behavior. Minimal eye contact. Responding to internal stimuli Speech: Patient's speech is non-fluent and non-pressured. Many incoherent mumbles. Mood/Affect: Mood is "ok", affect is congruent and constricted Suicidality/Homicidality: Patient denies having any suicidal or homicidal ideation, intent, or plan Perceptions: responding to internal stimuli though unable to answer questions about hallucinations. Though content/process: Paucity of thought. Thought process is disorganized and tangential. Memory and concentration: AOX3, grossly intact for the purposes of this session Judgment and insight: Poor ASSESSMENT: Unspecified psychotic disorder Likely underlying neurocognitive disorder PLAN: -Patient continues to meet criteria for inpatient psychiatric admission for symptom stabilization and safety. Patient has not signed adult voluntary form or medication consent. -Medications: - continue prolixin PO 3mg BID in preparation for transition to [facility] for psychotic symptoms to help with compliance. - Divalproex 1000 mg HS for mood stabilization - Continue Trazodone 50 mg QHS insomnia/mood -When necessary Ativan and Geodon for agitation/aggression. -NRT - Nicotine patch -SW on board for discharge planning. Encouraged the patient to participate in milieu. Currently awaiting court date on 04/07/24. patient is a senior living hold.
[2024-03-31] MEDS ORDERED: HALOPERIDOL LACTATE 5 MG/ML 1 ML VIAL IM PRN (12:43)
[2024-03-31] MEDS: HALOPERIDOL ORAL SOLN 10 MG/5 ML CUP PO PRN (13:08)
[2024-03-31] MEDS: traZODone HCL 50 MG TAB PO SCH (19:53)
--- NOTE | 2024-04-01 10:56 | P.PN ---
Progress Note - Text Progress Note Date: 04/01/24 Interval History: Patient was seen today laying in bed. She was agreeable to speak to story writer. She continues to be fairly concrete, mumbling at times. Claims that she is doing "okay". She continues to have very poor insight poor judgment. Wandering the hallways, attempting to open several doors. She appears to be more directable today, less impulsive. She is illogical, disorganized speech and thoughts. Appeared to be responding to internal stimuli at times. Continues to have poor reality testing. At this time patient denies any suicidal or homicidal ideations, intent or plan. Denies any auditory or visual hallucinations. Patient apparently slept a bit better last night. Mental Status Exam: General Appearance: Patient appears to be older than stated age is alert, occult to redirect. Hygiene is improving mildly, disheveled appearance. Behavior: Patient is calmly seated without any agitated behavior. Minimal eye contact. Responding to internal stimuli, improving mildly Speech: Patient's speech is non-fluent and non-pressured. incoherent mumbles. Mood/Affect: Mood is "ok", affect is congruent and constricted, improving mildly Suicidality/Homicidality: Patient denies having any suicidal or homicidal ideation, intent, or plan Perceptions: responding to internal stimuli though unable to answer questions about hallucinations. Though content/process: Paucity of thought. Thought process is disorganized and tangential. Memory and concentration: AOX3, grossly intact for the purposes of this session Judgment and insight: Chronically poor ASSESSMENT: Unspecified psychotic disorder Likely underlying neurocognitive disorder PLAN: -Patient continues to meet criteria for inpatient psychiatric admission for symptom stabilization and safety. Patient has not signed adult voluntary form or medication consent. -Medications: -Switch prolixin PO to Haldol liquid 5mg BID for psychosis, in preparation for transition to [facility] for psychotic symptoms to help with compliance. - Divalproex 1000 mg HS for mood stabilization - Continue Trazodone 50 mg QHS insomnia/mood -When necessary Ativan and Geodon for agitation/aggression. -NRT - Nicotine patch -SW on board for discharge planning. Encouraged the patient to participate in milieu. Currently awaiting court date on 04/07/24. patient is a [facility] hold.
[2024-04-01] MEDS: HALOPERIDOL ORAL SOLN 10 MG/5 ML CUP PO SCH (14:02)
[2024-04-01 18:13] LABS: Amorphous Sediment,Urine Occasional /hpf; Appearance,Urine Cloudy (Clear); Bilirubin,Urine Negative (Negative); Blood,Urine Negative (Negative); Color,Urine Light Yellow; Glucose,Urine (UA) Negative (Negative); Ketones,Urine Trace (Negative); Leukocyte Esterase,Urine Trace (Negative); Mucus,Urine Rare /hpf; Nitrite,Urine Negative (Negative); Protein,Urine Negative (Negative); RBC,Urine <1 /hpf (0-5); Specific Gravity,Urine 1.026 (1.001-1.035); Squamous Epithelial Cell,Urine 7 /hpf (0-4); WBC,Urine 15 /hpf (0-5)
--- NOTE | 2024-04-02 11:21 | P.PN ---
Progress Note - Text Progress Note Date: 04/02/24 Interval History: Patient was seen today laying in bed. She was agreeable to speak to food writer. She claims that she feels "more clear" today. She appeared to have mild improvement in her thought process, was more clear in her speech as well. She continues to mumble a bit during conversation however this is improving. Denies any depression or anxiety today. Did not report any overnight concerns. According to nursing reports she only slept about 3 hours. She continues to have very poor insight poor judgment this is improving. She appears to be more directable today, less impulsive. At this time patient denies any suicidal or homicidal ideations, intent or plan. Denies any auditory or visual hallucinations. Mental Status Exam: General Appearance: Patient appears to be older than stated age is alert, occult to redirect. Hygiene is improving mildly, disheveled appearance. Behavior: Patient is calmly seated without any agitated behavior.improving eye contact. less Responding to internal stimuli, improving mildly Speech: Patient's speech is non-fluent and non-pressured. More clear today Mood/Affect: Mood is "better", affect is congruent and constricted, improving mildly Suicidality/Homicidality: Patient denies having any suicidal or homicidal ideation, intent, or plan Perceptions: responding to internal stimuli though unable to answer questions about hallucinations. Though content/process: Thought process is less disorganized and more goal oriented. No delusions or paranoia Memory and concentration: AOX3, grossly intact for the purposes of this session Judgment and insight: Chronically poor, improving mildly ASSESSMENT: Unspecified psychotic disorder Likely underlying neurocognitive disorder PLAN: -Patient continues to meet criteria for inpatient psychiatric admission for symptom stabilization and safety. Patient has not signed adult voluntary form or medication consent. -Medications: -Continue with Haldol liquid 5mg BID for psychosis, in preparation for transition to [facility] for psychotic symptoms to help with compliance. - Divalproex 1000 mg HS for mood stabilization - Continue Trazodone 50 mg QHS insomnia/mood -When necessary Ativan and Geodon for agitation/aggression. -NRT - Nicotine patch -SW on board for discharge planning. Encouraged the patient to participate in milieu. Currently awaiting court date on 04/07/24. patient is a detention hold, will also need to be transitioned onto [facility] to ensure compliance prior to d/c
[2024-04-02 15:03] VITALS: BMI 24.0
--- NOTE | 2024-04-03 13:13 | P.PN ---
Progress Note - Text Progress Note Date: 04/03/24 Dictation was produced using [employer] dictation software. Please excuse any grammatical, word or spelling errors. Interval history: Patient was seen in the hallway and was directable and agreeable to speak with the credit underwriter in the day room for psychiatric follow-up. Patient was mumbling and was asking to repeat what she said multiple times. Thought process is disorganized, she has some bizarre behavior, she was going to other peers rooms last night and was redirected by staff, patient was encouraged to keep to her room and refrain from going to other peers rooms. She claims good sleep last night however gets reported as 3 hours. She was calm, cooperative during the interview, no aggression or agitation noticed or reported. She reported she has fleeting suicidal thoughts however no intention or plan, denied any homicidal thoughts. She denied any current auditory or visual hallucination. She admitted to good appetite. States that she has been taking her medication, she denied any side effects, she denied any muscle stiffness, rigidity, abnormal movement, or drooling. Patient was encouraged to attend groups and participate in the milieu, and to take care of her ADLs. Per nursing report patient was wondering the hallways and was redirected from going into another patient's room. Mental status exam: General Appearance: Patient appears to be older than stated age is alert, occult to redirect. Hygiene is poor, disheveled appearance. Behavior: Patient is calmly seated without any agitated behavior. She has intermittent eye contact. Patient did not seem to respond to internal stimuli during the interview Speech: Patient's speech is non-fluent and non-pressured. Mumbling Mood/Affect: Mood is "okay", affect is flat, congruent and constricted Suicidality/Homicidality: Patient denies having homicidal ideation, intent, or plan, reported fleeting suicidal thoughts without any intention or plan Perceptions: Patient has bizarre thoughts and disorganized behavior, general respond to internal stimuli during the interview and she denied auditory and visual hallucination. Though content/process: Thought process is disorganized and somewhat goal oriented. No delusions or paranoia Memory and concentration: AOX3, grossly intact for the purposes of this session Judgment and insight: Chronically poor, improving mildly Impression: Unspecified psychotic disorder Likely underlying neurocognitive disorder Assessment/Plan: Continue with current diagnosis. Patient continues to meet criteria for inpatient psychiatric admission for symptom stabilization and safety. Patient will be maintained on current psychotropic medication regimen. Monitor for medication compliance and for any psychotropic medication side effects. Will continue to monitor ongoing response to treatment. Encouraged participation in milieu. Currently awaiting court date on 04/07/24. patient is a group home hold, plan to transition to [facility] to ensure compliance prior to d/c.
--- NOTE | 2024-04-04 13:53 | P.PN ---
Progress Note - Text Progress Note Date: 04/04/24 Dictation was produced using [employer] dictation software. Please excuse any grammatical, word or spelling errors. Interval history: Patient was seen in the day room, eating her meal and was directable and agreeable to speak with the comic book writer for psychiatric follow-up. The pt states that she is feeling "okay" today. Pt was mumbling during the conversation and the comic book writer could not understand what she was saying at times. Denies any depression or anxiety. Did not report any overnight concerns, per staff report she slept all night long which is improved compared to 3 hours the night before. She continues to have very poor insight and poor judgment. She appears to be more directable today, less impulsive, was able to feed herself. At this time patient denies any suicidal or homicidal ideations, intent or plan. Denies any auditory or visual hallucinations. She has been compliant with her medications, she denied any side effects. She was able to shower yesterday with staff help. Mental status exam: General Appearance: Patient appears to be older than stated age is alert, occult to redirect. Hygiene is poor, disheveled appearance however improved compared to previous day. Behavior: Patient is calmly seated without any agitated behavior. She has intermittent eye contact. Patient did not seem to respond to internal stimuli during the interview Speech: Patient's speech is non-fluent and non-pressured. Mumbling Mood/Affect: Mood is "okay", affect is flat, congruent and constricted Suicidality/Homicidality: Patient denies having homicidal ideation, intent, or plan, reported fleeting suicidal thoughts without any intention or plan Perceptions: Patient has bizarre thoughts and disorganized behavior, general respond to internal stimuli during the interview and she denied auditory and visual hallucination. Though content/process: Thought process is disorganized and somewhat goal oriented. No delusions or paranoia Memory and concentration: AOX3, grossly intact for the purposes of this session Judgment and insight: Chronically poor, improving mildly Impression: Unspecified psychotic disorder Likely underlying neurocognitive disorder Assessment/Plan: Continue with current diagnosis. Patient continues to meet criteria for inpatient psychiatric admission for symptom stabilization and safety. Patient will be maintained on current psychotropic medication regimen. Monitor for medication compliance and for any psychotropic medication side effects. Will continue to monitor ongoing response to treatment. Encouraged participation in milieu.
--- NOTE | 2024-04-05 11:35 | P.PN ---
Progress Note - Text Progress Note Date: 04/05/24 Interval History: Patient was seen today laying in bed. She was seen up earlier wandering the h allways, checking the door locks. She was agreeable to speak to account underwriter. She continues to be somewhat disorganized in her thoughts, pointed to her roommate and said things which were nonsensical. She appeared to have mild improvement in her thought process, was mildly more clear in her speech as well. She continues to mumble a bit during conversation however this is improving. Denies any depression or anxiety today. Did not report any overnight concerns. She continues to have chronically poor insight poor judgment this is improving. She appears to be more directable today. At this time patient denies any suicidal or homicidal ideations, intent or plan. Denies any auditory or visual hallucinations. Mental Status Exam: General Appearance: Patient appears to be older than stated age is alert, occult to redirect. Hygiene is improving mildly, disheveled appearance. Behavior: Patient is calmly seated without any agitated behavior.improving eye contact. less Responding to internal stimuli, improving mildly Speech: Patient's speech is non-fluent and non-pressured. Continues to mumble Mood/Affect: Mood is "ok", affect is congruent and constricted, improving mildly Suicidality/Homicidality: Patient denies having any suicidal or homicidal ideation, intent, or plan Perceptions: responding to internal stimuli though unable to answer questions about hallucinations. Though content/process: Thought process is less disorganized and more goal oriented. No delusions or paranoia Memory and concentration: AOX3, grossly intact for the purposes of this session Judgment and insight: Chronically poor, improving mildly ASSESSMENT: Unspecified psychotic disorder Likely underlying neurocognitive disorder PLAN: -Patient continues to meet criteria for inpatient psychiatric admission for symptom stabilization and safety. Patient has not signed adult voluntary form or medication consent. -Medications: -increase Haldol liquid 5mg BID + 3 mg at 1400 hr for psychosis, in preparation for transition to [facility] for psychotic symptoms to help with compliance. - Divalproex 1000 mg HS for mood stabilization - Continue Trazodone 50 mg QHS insomnia/mood -When necessary Ativan and Geodon for agitation/aggression. -NRT - Nicotine patch -SW on board for discharge planning. Encouraged the patient to participate in milieu. Currently awaiting court date on 04/07/24. patient is a [facility] hold, will also need to be transitioned onto [facility] to ensure compliance prior to d/c
[2024-04-05] MEDS: HALOPERIDOL ORAL SOLN 10 MG/5 ML CUP PO SCH (14:04)
--- NOTE | 2024-04-06 11:04 | P.PN ---
Progress Note - Text Progress Note Date: 04/06/24 Interval History: Patient was seen today laying in bed. She continues to be disorganized on the unit at times, bizarre behaviors. She was rambling at times during the interview, continues to have disorganized speech. She continues to mumble a bit during conversation however this is improving. Denies any depression or anxiety today. Did not report any overnight concerns. She continues to have chronically poor insight poor judgment this is improving. She appears to be more directable today. At this time patient denies any suicidal or homicidal ideations, intent or plan. Denies any auditory or visual hallucinations. Mental Status Exam: General Appearance: Patient appears to be older than stated age is alert, occult to redirect. Hygiene is improving mildly, disheveled appearance. Behavior: Patient is calmly seated without any agitated behavior.needs to be bizarre, disorganized behavior Speech: Patient's speech is non-fluent and non-pressured. Continues to mumble Mood/Affect: Mood is "good", affect is congruent and constricted, improving mildly Suicidality/Homicidality: Patient denies having any suicidal or homicidal ideation, intent, or plan Perceptions: responding to internal stimuli though unable to answer questions about hallucinations. Though content/process: Thought process is disorganized, mumbling at times, illogical Memory and concentration: AOX1-2, grossly intact for the purposes of this session Judgment and insight: Chronically poor, improving mildly ASSESSMENT: Unspecified psychotic disorder Likely underlying neurocognitive disorder PLAN: -Patient continues to meet criteria for inpatient psychiatric admission for symptom stabilization and safety. Patient has not signed adult voluntary form or medication consent. -Medications: -increase Haldol liquid 5mg TID for psychosis, in preparation for transition to [facility] for psychotic symptoms to help with compliance. - Divalproex 1000 mg HS for mood stabilization - Continue Trazodone 50 mg QHS insomnia/mood -When necessary Ativan and Geodon for agitation/aggression. -NRT - Nicotine patch -SW on board for discharge planning. Encouraged the patient to participate in milieu. Currently awaiting court date on 04/07/24. patient is a long-term hold, will also need to be transitioned onto [facility] to ensure compliance prior to d/c
[2024-04-06] MEDS: HALOPERIDOL ORAL SOLN 10 MG/5 ML CUP PO SCH (15:48)
[2024-04-07 08:54] LABS: Basophils # (A) 0.1 k/uL (0-0.2); Basophils % (A) 1 %; Eosinophils # (A) 0.1 k/uL (0-0.7); Eosinophils % (A) 1 %; HCT 42.3 % (34.0-46.0); HGB 13.9 gm/dL (11.4-16.0); Lymphocytes # (A) 3.5 k/uL (1.0-4.8); Lymphocytes % (A) 45 %; MCH 29.6 pg (25.0-35.0); MCHC 32.8 g/dL (31.0-37.0); MCV 90.1 fL (80.0-100.0); Mean Platelet Volume 7.4; Monocytes # (A) 0.6 k/uL (0-1.0); Monocytes % (A) 8 %; Neutrophils # (A) 3.3 k/uL (1.3-7.7); Neutrophils % (A) 42 %; Platelet Count 268 k/uL (150-450); RBC 4.69 m/uL (3.80-5.40); WBC 7.7 k/uL (3.8-10.6)
[2024-04-07 09:16] LABS: ALT 10 U/L (4-34); African American GFR (CKD) >90 (>60 ml/min/1.73 sqM); Albumin 3.8 g/dL (3.5-5.0); Anion Gap 5 mmol/L; Blood Urea Nitrogen 25 mg/dL (7-17); Calcium 9.9 mg/dL (8.4-10.2); Carbon Dioxide 26 mmol/L (22-30); Chloride 109 mmol/L (98-107); Glucose 75 mg/dL (74-99); Non-African American GFR(CKD) 81 (>60 ml/min/1.73 sqM); Sodium 140 mmol/L (137-145); Total Bilirubin 0.2 mg/dL (0.2-1.3)
[2024-04-07 09:17] LABS: AST 20 U/L (14-36); Alkaline Phosphatase 43 U/L (38-126); Potassium 4.6 mmol/L (3.5-5.1)
--- NOTE | 2024-04-07 12:44 | P.PN ---
Progress Note - Text Progress Note Date: 04/07/24 Interval History: Patient was seen today wandering the hallways after her court hearing. Patient had a hearing this morning which resulted in a court order. She continues to be disorganized on the unit at times, wandering frequently, a bit more directable today. She was rambling at times during the interview, a bit more organized today and her speech and behaviors. She continues to mumble a bit during conversation however this is improving. Denies any depression or anxiety today. Nursing report claims that patient did not sleep well last night. She continues to have chronically poor insight poor judgment. She appears to be more directable today. At this time patient denies any suicidal or homicidal ideations, intent or plan. Denies any auditory or visual hallucinations. Mental Status Exam: General Appearance: Patient appears to be older than stated age is alert, more directable today. Hygiene is improving mildly, disheveled appearance. Behavior: Patient is calmly seated without any agitated behavior. bizarre, disorganized behavior, improving mildly Speech: Patient's speech is non-fluent and non-pressured. Continues to mumble, improving mildly Mood/Affect: Mood is "ok", affect is congruent and constricted, improving mildly Suicidality/Homicidality: Patient denies having any suicidal or homicidal ideation, intent, or plan Perceptions: Denies any auditory visual hallucinations. Though content/process: Thought process is disorganized, mumbling at times, illogical, improving mildly Memory and concentration: AOX1-2, grossly intact for the purposes of this session Judgment and insight: Chronically poor, improving mildly ASSESSMENT: Unspecified psychotic disorder Likely underlying neurocognitive disorder PLAN: -Patient continues to meet criteria for inpatient psychiatric admission for symptom stabilization and safety. Patient has not signed adult voluntary form or medication consent. -Medications: -increase Haldol liquid 6 mg TID for psychosis, in preparation for transition to [facility] for psychotic symptoms to help with compliance. - Divalproex 1000 mg HS for mood stabilization - Continue Trazodone 50 mg QHS insomnia/mood -When necessary Ativan and Geodon for agitation/aggression. -NRT - Nicotine patch -SW on board for discharge planning. Encouraged the patient to participate in milieu. Patient received court order on 04/07/24. patient is a custodial hold, will also need to be transitioned onto [facility] to ensure compliance prior to d/c. Hopeful for discharge next week
[2024-04-07] MEDS: HALOPERIDOL ORAL SOLN 10 MG/5 ML CUP PO SCH (15:37)
[2024-04-07] MEDS: traZODone HCL 100 MG TAB PO SCH (22:00)
--- NOTE | 2024-04-08 09:58 | P.PN ---
Progress Note - Text Progress Note Date: 04/08/24 Interval History: Patient was seen today laying in her bed. She reportedly slept about 5 hours last night according to nursing report. She was approached by junior copywriter today was sleeping. Denying any side effects denying any muscle stiffness. She continues to have disorganized speech however this is improving since yesterday. She was able to answer some basic questions. Claims that she is doing "all right". Denied any overnight problems. Has been eating. a bit more organized today and her speech and behaviors. She continues to mumble a bit during conversation however this is improving. Denies any depression or anxiety today. She continues to have chronically poor insight poor judgment. She appears to be more directable today. At this time patient denies any suicidal or homicidal ideations, intent or plan. Denies any auditory or visual hallucinations. Mental Status Exam: General Appearance: Patient appears to be older than stated age is alert, more directable today. Hygiene is improving mildly, disheveled appearance, improving mildly. Behavior: Patient is calmly seated without any agitated behavior. bizarre, disorganized behavior, improving mildly Speech: Patient's speech is non-fluent and non-pressured. Continues to mumble, improving mildly Mood/Affect: Mood is "fine", affect is congruent and constricted, improving mildly Suicidality/Homicidality: Patient denies having any suicidal or homicidal ideation, intent, or plan Perceptions: Denies any auditory visual hallucinations. Though content/process: Thought process is disorganized, mumbling at times,improving mildly Memory and concentration: AOX1-2, grossly intact for the purposes of this session Judgment and insight: Chronically poor, improving mildly ASSESSMENT: Unspecified psychotic disorder Likely underlying neurocognitive disorder PLAN: -Patient continues to meet criteria for inpatient psychiatric admission for symptom stabilization and safety. Patient has not signed adult voluntary form or medication consent. -Medications: -will taper off Haldol liquid as patient will be transitioned onto [facility]. decrease to PO 3 mg TID for psychosis, give Haldol D 50 mg IM on 04/08 and next dose of 50 mg IM will be given on 04/10. - Divalproex 1000 mg HS for mood stabilization - Continue Trazodone 50 mg QHS insomnia/mood -When necessary Ativan and Geodon for agitation/aggression. -NRT - Nicotine patch -SW on board for discharge planning. Encouraged the patient to participate in milieu. Patient received court order on 04/07/24. patient is a senior care hold, will also need to be transitioned onto [facility] to ensure compliance prior to d/c. Hopeful for discharge next week
[2024-04-08] MEDS: HALOPERIDOL DECANOATE 50 MG/ML 1 ML VIAL IM STA (10:11)
[2024-04-08] MEDS: HALOPERIDOL ORAL SOLN 10 MG/5 ML CUP PO SCH (15:26)
--- NOTE | 2024-04-09 12:20 | P.PN ---
Progress Note - Text Progress Note Date: 04/09/24 Interval History: Patient was seen today laying in her bed. Patient has been taking her medicat ions. She reportedly slept about 4 hours last night according nursing report. Patient was awoken by personal lines underwriter, she was a bit more clear today and her thoughts, also more clear in her speech today. She was answered several questions today appropriately. She denies any overnight complaints. Denies any issues at this time not reporting any side effects or stiffness. She did claim that she did receive the injection yesterday we spoke about the second injection tomorrow which she is okay with. Has been eating. Reported less wandering in the hallways and less bizarre behaviors. Denies any depression or anxiety today. She continues to have chronically poor insight poor judgment. She appears to be more directable today. At this time patient denies any suicidal or homicidal ideations, intent or plan. Denies any auditory or visual hallucinations. Mental Status Exam: General Appearance: Patient appears to be older than stated age is alert, more directable today. Hygiene is improving mildly, less disheveled appearance, improving mildly. Behavior: Patient is calmly seated without any agitated behavior. Less disorganized behavior Speech: Patient's speech is non-fluent and non-pressured. Continues to mumble, improving mildly Mood/Affect: Mood is "ok", affect is congruent and constricted, improving mildly Suicidality/Homicidality: Patient denies having any suicidal or homicidal idea tion, intent, or plan Perceptions: Denies any auditory or visual hallucinations. Though content/process: Thought process is less disorganized, mumbling at times,improving mildly Memory and concentration: AOX1-2, grossly intact for the purposes of this session Judgment and insight: Chronically poor, improving mildly ASSESSMENT: Unspecified psychotic disorder Likely underlying neurocognitive disorder PLAN: -Patient continues to meet criteria for inpatient psychiatric admission for symptom stabilization and safety. Patient has not signed adult voluntary form or medication consent. -Medications: -taper off Haldol liquid, last dose tonight. will be transitioned onto MARRUFO. given Haldol D 50 mg IM on 04/08 and next dose of 75 mg IM will be given on 04/10. Haldol D 125 mg IM next dose will be due q14d next on 04/23 - Divalproex 1000 mg HS for mood stabilization - increase Trazodone 150 mg QHS insomnia/mood -When necessary Ativan and Geodon for agitation/aggression -NRT - Nicotine patch -SW on board for discharge planning. Encouraged the patient to participate in milieu. Patient received court order on 04/07/24. patient is a senior living hold, will also need to be transitioned onto MARRUFO to ensure compliance prior to d/c. Hopeful for discharge next week friday vs friday
[2024-04-09] MEDS: HALOPERIDOL ORAL SOLN 10 MG/5 ML CUP PO SCH (18:14)
[2024-04-09] MEDS: traZODone HCL 50 MG TAB PO SCH (22:16)
[2024-04-10] MEDS: HALOPERIDOL DECANOATE 100 MG/ML 1 ML VIAL IM ONE (09:00)
[2024-04-10] MEDS: HALOPERIDOL ORAL SOLN 10 MG/5 ML CUP PO STA (13:14)
--- NOTE | 2024-04-10 16:10 | P.PN ---
Progress Note - Text Progress Note Date: 04/10/24 Dictation was produced using [employer] dictation software. Please excuse any grammatical, word or spelling errors. Interval history: Patient was seen in the hallway and was directable and agreeable to speak with the law writer in her room for psychiatric follow-up. The pt states that she is "okay" today, reported that he has been taking her medication, denied any current side effects, denied any muscle stiffness, rigidity, abnormal movement, or drooling. She claims that she received her injection today, tolerating well. Reported that she slept well overnight, per nursing report she slept around 8 hours last night. Patient speech continue to improved compared to last weekend when she was seen by the law writer, she is less mumbling. He denied any current suicidal, self-harm or homicidal thoughts or behavior. The patient denied any current auditory or visual hallucination. She continues to have chronically poor insight, and poor judgment. She appears to be more directable. The patient could not remember the incident during which she went to another peer room and was educated on keeping to herself and refrain from going to any other peers rooms. She reported that she understands. Mental status exam: General Appearance: Patient appears to be older than stated age is alert, more directable today. Hygiene is improving mildly, less disheveled appearance, improving mildly. Behavior: Patient is calmly seated at the side of her bed without any agitated behavior. Less disorganized behavior Speech: Patient's speech is non-fluent and non-pressured. Continues to mumble, improving mildly Mood/Affect: Mood is "okay", affect is congruent and constricted, improving mildly Suicidality/Homicidality: Patient denies having any suicidal or homicidal ideation, intent, or plan Perceptions: Denies any auditory or visual hallucinations. Though content/process: Thought process is less disorganized, mumbling at times,improving mildly Memory and concentration: AOX1-2, grossly intact for the purposes of this session Judgment and insight: Chronically poor, improving mildly ASSESSMENT: Unspecified psychotic disorder Likely underlying neurocognitive disorder Assessment/Plan: Continue with current diagnosis. Patient continues to meet criteria for inpatient psychiatric admission for symptom stabilization and safety. Patient will be maintained on current psychotropic medication regimen, patient received Haldol Decanoate 75 mg IM today, tolerating well, she received 1 dose of oral Haldol 3 mg, oral Haldol was discontinued. Monitor for medication compliance and for any psychotropic medication side effects. Will continue to monitor ongoing response to treatment. Encouraged participation in milieu.
--- NOTE | 2024-04-11 12:33 | P.PN ---
Progress Note - Text Progress Note Date: 04/11/24 Dictation was produced using [employer] dictation software. Please excuse any grammatical, word or spelling errors. Interval history: Patient was seen in the hallway and was directable and agreeable to speak with the fiction writer in her room for psychiatric follow-up. The pt states that she is feeling good today, and she was smiling. She denied any current depression or anxiety. Reported that she has been taking her medication, denied any side effects. Reported that she has been eating good, claims that she slept well overnight per report 3 hours however was 8 hours the night before. Patient speech continues to improve, less mumbling. He denied any current suicidal, self-harm or homicidal thoughts or behavior. The patient denied any current auditory or visual hallucination. She continues to have chronically poor insight, and poor judgment. She appears to be more directable. The patient was educated on keeping to herself and refrain from going to any other peers rooms. She reported that she understands. No PRNs given or requested. Mental status exam: General Appearance: Patient appears to be older than stated age is alert, more directable today. Hygiene is improving mildly, less disheveled appearance, improving mildly. Behavior: Patient is calmly seated at the side of her bed without any agitated behavior. Less disorganized behavior Speech: Patient's speech is non-fluent and non-pressured. Continues to mumble, improving mildly Mood/Affect: Mood is "good", he was smiling during assessment, affect is congruent and constricted, improving mildly Suicidality/Homicidality: Patient denies having any suicidal or homicidal ideation, intent, or plan Perceptions: Denies any auditory or visual hallucinations. Though content/process: Thought process is less disorganized, mumbling at times,improving mildly Memory and concentration: AOX1-2, grossly intact for the purposes of this session Judgment and insight: Chronically poor, improving mildly ASSESSMENT: Unspecified psychotic disorder Likely underlying neurocognitive disorder Assessment/Plan: Continue with current diagnosis. Patient continues to meet criteria for inpatient psychiatric admission for symptom stabilization and safety. Patient will be maintained on current psychotropic medication regimen. Monitor for medication compliance and for any psychotropic medication side effects. Will continue to monitor ongoing response to treatment. Encouraged participation in milieu.
--- NOTE | 2024-04-12 11:24 | P.DS ---
Providers Date of admission: 03/22/24 19:24 Expected date of discharge: 04/12/24 Attending physician: Ron Beck MD Consults: 03/22/24 19:29 Consult Physician Routine Consulting Provider: Jeffrey Physician Consult Reason/Comments: H&P and medical Do you want consulting provider notified?: Yes Primary care physician: Stated None - Discharge Diagnosis(es) (1) Unspecified psychosis Current Visit: Yes Status: Acute Priority: High (2) Major neurocognitive disorder Current Visit: Yes Status: Acute Priority: High Hospital Course: Admission HPI: Admission note was completed by residential mortgage underwriter "patient is a 63-year-old female, coming from the [facility]. Patient presented to the hospital yesterday for psychiatric evaluation, was brought from the long term. Patient apparently was uncooperative aggressive and pressured speech in the ER. According to petition filled out by long term social insurance specialist states that "client is ANO x 1, client disorganized pressured labile, aggressive, history of schizoaffective disorder, client has not slept or eaten in 3 days, client observed to be eating Styrofoam from her meals only". Patient was assessed by [facility] social insurance specialist and as per note "Cl awake sitting on edge of bed [facility] A/O x 1 brought in via on PET due to psychosis,agitation and, agression.PET states " Client is A/Ox1, disorganzied ,pressured,labile,agressive,hx of schizo-affective disorder, has not slept or eaten in 3 days, observed eating styrofoam from her meals only." Cl reports not knowing why they are in the ER. Cl presents disorganized in thought and speech, non sensical statements, loose association, flight of ideas, guarded, appears disoriented, delusional, and paranoid. When asked basic questions cl would ramble with disconnected statements.Cl is disheveld, intense eye contact, poor hygene, loss of conceptualization and abstraction. When asked if suicidal cl replied " I'll let you know." When asked if homicidal " my daughter who this year." Judgement/insight/impulse control poor ADLS: poor sleep/robert: poor Medical issues: unable to determine, possible UTI. Medications: none reported. Hx of tx: Cl does not recieve any MH tx at this time and is not open with [facility]. Clinician did not find records in [facility]. Hx of KAT: None reported UDS: pending BAT: 0.0 Hx of in pat rehab: none reported Fam hx : nonsensical answers. Hx of trauma: Not addressed due to cl's disorginization. Hx of legal: Currently in long term." Patient was seen today in her room. She appears to have disheveled appearance, was responding to internal stimuli. She was fairly uncooperative with the interview, mumbling, fairly nonsensical disorganized speech. Car Rental Agent attempted to ask her specific questions however she only answered a few of them. Very poor insight poor judgment. Poor historian. Patient denies any suicidal or homicidal ideations intent or plan. Did not answer questions related to hallucinations. Patient was not able to answer questions related to substance use." Hospital course: Upon admission to the unit patient was admitted involuntarily on a petition and certificate and a second certificate was completed and faxed to the courts. Patient ended up having a court hearing for mental health treatment and receiving a mental health treatment order on 04/07. Patient was mainly disoriented at times, pacing the hallways and confused however with time and treatment she eventually improved from her baseline. Patient was compliant with the medications and denied any side effects throughout hospital course. Patient was started on Haldol liquid, tolerated well when she was transition onto Haldol D 50 mg IM dose was given on 04/08, second dose of 75 mg was given on 04/10, next dose of Haldol the 125 mg IM will be due on 04/26 q. 14 days for psychosis. Patient was also started on trazodone 150 mg nightly for insomnia/mood, divalproex 1000 mg nightly for mood stabilization. Patient was also seen by medical team for history and physical exam. Throughout the course of the hospitalization patient gradually improved with regards to confusion, psychosis, mood, sleep and returned back to their baseline level of functioning. On the day of discharge patient denied any suicidal or homicidal ideations intent or plan denied any auditory or visual hallucinations. Patient denied any paranoia and did not endorse any delusions. Patient does not have a significant history of substance abuse and was counseled on abstaining from all substances including alcohol and marijuana. Patient was also counseled on the medications and need for regular compliance and was encouraged to follow-up with their outpatient appointment for mental health and also for primary care. patient was a long term hold, will be discharged back to long term today. Car Rental Agent attempted to call patient's daughter for further communication and collateral however no answer Mental status exam: General Appearance: Patient appears to be thin, stated age is alert, attempts to be cooperative. Patient is in no acute distress and has improved hygiene and grooming Behavior: Patient is calmly laying in bed without any agitated behavior. Speech: Patient's speech is nonpressured. mumbles at times Mood/Affect: Patient reports their mood is "ok", affect is congruent Suicidality/Homicidality: Patient denies having any suicidal or homicidal ideation intent or plan. Perceptions: Patient denies any auditory or visual hallucinations. Though content/process: Patient mainly mumbles, poverty of content. No delusions or paranoia Memory and concentration: AOX1-2, grossly impaired memory recall and attention. Cannot spell "WORLD" backwards correctly. Judgment and insight: Chronically poor/limited, however has improved with poor prognosis Impression: Psychosis unspecified Major neurocognitive disorder Plan: -Continue with discharge today as patient has improved and stabilized psychiatrically and is not currently an imminent threat to themself and/or others. Patient will continue to have a chronically impaired insight and judgment due to her neurocognitive disorder underlying -Continue medications: Haldol D 125 mg IM, q. 14 days, next dose will be due on 04/26. Divalproex 1000 mg nightly for mood stabilization, trazodone 150 mg nightly for insomnia/mood. -Patient was counseled on the need for medication compliance and appropriate follow-up at mental health and also primary care for medical issues. Patient verbalized understanding and agreed. -Social work to help coordinate patients discharge today back to long term. Also wi ll be communicating with SW at the long term to recommend for guardianship and also possibly placement in a geriatric facility/memory care unit to patient's major neurocognitive disorder and poor abilities to do IADLs and ADLs. also to ensure safe home environment that guns/weapons are either removed from the home or locked away. Social work also to arrange for patients follow up appointments with [facility] for psychiatric care along with follow up with primary care provider. -Patient counseled on abstaining from recreational drugs and marijuana and alcohol. Was informed/educated on the adverse effects on their physical and mental health. Patient verbally agreed and understood. -Patient was instructed to return to the hospital or seek immediate medical care if their psychiatric or medical symptoms do worsen or reoccur. Allergies Allergy/AdvReac Type Severity Reaction Status Date / Time No Known Allergies Allergy Verified 03/22/24 15:27 Laboratory Results WBC 7.7 k/uL (3.8-10.6) 04/07/24 08:33 RBC 4.69 m/uL (3.80-5.40) 04/07/24 08:33 Hgb 13.9 gm/dL (11.4-16.0) 04/07/24 08:33 Hct 42.3 % (34.0-46.0) 04/07/24 08:33 MCV 90.1 fL (80.0-100.0) 04/07/24 08:33 MCH 29.6 pg (25.0-35.0) 04/07/24 08: MCHC 32.8 g/dL (31.0-37.0) 04/07/24 08:33 RDW 12.0 % (11.5-15.5) 04/07/24 08:33 Plt Count 268 k/uL (150-450) 04/07/24 08:33 MPV 7.4 04/07/24 08:33 Neutrophils % 42 % 04/07/24 08:33 Lymphocytes % 45 % 04/07/24 08:33 Monocytes % 8 % 04/07/24 08:33 Eosinophils % 1 % 04/07/24 08:33 Basophils % 1 % 04/07/24 08:33 Neutrophils # 3.3 k/uL (1.3-7.7) 04/07/24 08:33 Lymphocytes # 3.5 k/uL (1.0-4.8) 04/07/24 08:33 Monocytes # 0.6 k/uL (0-1.0) 04/07/24 08:33 Eosinophils # 0.1 k/uL (0-0.7) 04/07/24 08:33 Basophils # 0.1 k/uL (0-0.2) 04/07/24 08:33 Sodium 140 mmol/L (137-145) 04/07/24 08:33 Potassium 4.6 mmol/L (3.5-5.1) 04/07/24 08:33 Chloride 109 mmol/L (98-107) H 04/07/24 08:33 Carbon Dioxide 26 mmol/L (22-30) 04/07/24 08:33 Anion Gap 5 mmol/L 04/07/24 08:33 BUN 25 mg/dL (7-17) H 04/07/24 08:33 Creatinine 0.79 mg/dL (0.52-1.04) 04/07/24 08:33 Est GFR (CKD-EPI)AfAm >90 (>60 ml/min/1.73 sqM) 04/07/24 08:33 Est GFR (CKD-EPI)NonAf 81 (>60 ml/min/1.73 sqM) 04/07/24 08:33 Glucose 75 mg/dL (74-99) 04/07/24 08:33 POC Glucose (mg/dL) 104 mg/dL (70-110) 03/22/24 13:35 POC Glu Performance Analyst ID Shy Laguerre 03/22/24 13:35 Calcium 9.9 mg/dL (8.4-10.2) 04/07/24 08:33 Magnesium 2.1 mg/dL (1.6-2.3) 03/27/24 18:05 Total Bilirubin 0.2 mg/dL (0.2-1.3) 04/07/24 08:33 AST 20 U/L (14-36) 04/07/24 08:33 ALT 10 U/L (4-34) 04/07/24 08:33 Alkaline Phosphatase 43 U/L (38-126) 04/07/24 08:33 Total Protein 6.0 g/dL (6.3-8.2) L 04/07/24 08:33 Albumin 3.8 g/dL (3.5-5.0) 04/07/24 08:33 Vitamin B12 470.0 pg/mL (200.0-944.0) 04/02/24 07:20 Folate 7.10 ng/mL (4.40-31.00) 04/02/24 07:20 TSH 1.320 mIU/L (0.465-4.680) 04/02/24 07:20 Urine Color Light Yellow 04/01/24 17:45 Urine Appearance Cloudy (Clear) H 04/01/24 17:45 Urine pH 7.0 (5.0-8.0) 04/01/24 17:45 Ur Specific Marvin 1.026 (1.001-1.035) 04/01/24 17:45 Urine Protein Negative (Negative) 04/01/24 17:45 Urine Glucose (UA) Negative (Negative) 04/01/24 17:45 Urine Ketones Trace (Negative) H 04/01/24 17:45 Urine Blood Negative (Negative) 04/01/24 17:45 Urine Nitrite Negative (Negative) 04/01/24 17:45 Urine Bilirubin Negative (Negative) 04/01/24 17:45 Urine Urobilinogen 2.0 mg/dL (<2.0) 04/01/24 17:45 Ur Leukocyte Esterase Trace (Negative) H 04/01/24 17:45 Urine RBC <1 /hpf (0-5) 04/01/24 17:45 Urine WBC 15 /hpf (0-5) H 04/01/24 17:45 Ur Squamous Epith Cells 7 /hpf (0-4) H 04/01/24 17:45 Amorphous Sediment Occasional /hpf (None) H 04/01/24 17:45 Urine Mucus Rare /hpf (None) H 04/01/24 17:45 Salicylates <1.0 mg/dL 03/22/24 13:43 Acetaminophen <10.0 ug/mL 03/22/24 13:43 Serum Alcohol <10 mg/dL 03/22/24 13:43 SARS-CoV-2 (PCR) Not Detected (Not Detectd) 03/22/24 15:00 Vital Signs Temp 97.9 F 04/10/24 15:21 Pulse 53 L 04/10/24 15:21 Resp 18 04/10/24 15:21 BP 99/75 04/10/24 15:21 Pulse Ox 95 04/10/24 15:21 FiO2 Intake & Output 04/11/24 04/12/24 04/12/24 18:59 06:59 18:59 Weight 63.6 kg Patient Condition at Discharge: Stable Plan - Discharge Summary Discharge Rx Participant: No New Discharge Prescriptions: New traZODone HCL 150 mg PO HS 30 Days #30 tablet Divalproex [Depakote] 1,000 mg PO HS 30 Days #60 tab Nicotine 14Mg/24Hr Patch [Habitrol] 1 patch TRANSDERM DAILY 14 Days #14 patch Haloperidol Decanoate [Haldol D] 125 mg IM Q14D #1 each Discharge Medication List Divalproex [Depakote] 1,000 mg PO HS 30 Days #60 tab 04/12/24 [Rx] Haloperidol Decanoate [Haldol D] 125 mg IM Q14D #1 each 04/12/24 [Rx] Nicotine 14Mg/24Hr Patch [Habitrol] 1 patch TRANSDERM DAILY 14 Days #14 patch 04/12/24 [Rx] traZODone HCL 150 mg PO HS 30 Days #30 tablet 04/12/24 [Rx] Follow up Appointment(s)/Referral(s): Care, Yes [Other] - 04/12/24 4:00 pm (Intake upon arrival ) None,Stated [Primary Care Provider] - 1-2 days Activity/Diet/Wound Care/Special Instructions: [facility] Discharge Info Avoid the use of street drugs and alcohol. Take all medications as prescribed. When you are in need of refills on your medications, please contact your outpatient medical provider and/or outpatient psychiatrist. Please go to your scheduled outpatient appointments for aftercare treatment. If symptoms return or become worse, call the crisis line at or and/or visit the nearest emergency room for assistance. National Suicide and Crisis Lifeline - call or text 578 Discharge Disposition: DC/TRANSFER COURT/LAW
[2024-04-12 11:37] VITALS: BP 110/73; PULSE 67; RESP 14; TEMP 97.2
== END 2024-04-12 15:44 | DRG 885 ==
LOC: EC 12:24 → 3MHU 19:24
PROVIDERS: ADMIT Psychiatry & Neurology Psychiatry; ATTEND Psychiatry & Neurology Psychiatry
DX: F25.9 Schizoaffective disorder, unspecified (principal); E83.52 Hypercalcemia; E78.5 Hyperlipidemia, unspecified; F17.200 Nicotine dependence, unspecified, uncomplicated; I10 Essential (primary) hypertension; I25.10 Atherosclerotic heart disease of native coronary artery without angina pectoris; J44.9 Chronic obstructive pulmonary disease, unspecified; G47.00 Insomnia, unspecified; Z65.3 Problems related to other legal circumstances; Z85.3 Personal history of malignant neoplasm of breast; Z79.899 Other long term (current) drug therapy
CPT/HCPCS: 36415; 70450; 71046; 72125; 80048; 80053; 80143; 80179; 80320; 81001; 82075; 82607; 82746; 83735; 84443; 85025; 87086; 87635; 96372; 99291